=== PATIENT | male | born 2000 | race Caucasian/White ===

== ENCOUNTER 2023-10-23 14:53 | Emergency (ER) | payer BC, OTHER | END 2023-10-23 16:52 | disposition home or self-care (01) | LOC: VM.ED 14:53 | DX: S39.012A Strain of muscle, fascia and tendon of lower back, initial encounter (principal); V47.6XXA Car passenger injured in collision with fixed or stationary object in traffic accident, initial encounter | CPT/HCPCS: 99283 ==